=== PATIENT | male | born 1945 | race Caucasian/White ===

== ENCOUNTER 2022-04-07 19:55 | Inpatient (IN) ==
[2022-04-07] MEDS ORDERED: ASPIRIN CHEW 324 MG PO STA (20:10)
[2022-04-07] MEDS ORDERED: SODIUM CHLORIDE 0.9% 500 ML IV ONE (20:10)
[2022-04-07] MEDS ORDERED: NITROGLYCERIN SL 0.4 MG/TAB TAB SL PRN ×2 (20:12→23:31)
[2022-04-07 20:48] LABS: Troponin I High Sensitivity 7.4 pg/ml (0-20)
[2022-04-07 20:55] LABS: Albumin Globulin Ratio 1.5 (0.9-2); Albumin Level 4.2 gm/dl (3.4-5.0); BUN Creatinine Ratio 19.8 (10-20); Bilirubin,Total 0.7 mg/dl (0.2-1.0); Calcium 9.1 mg/dl (8.5-10.1); Creatinine Clr Calc Pharmacy 63.3 ml/min; Est GFR (African American) 89.9 ml/min; Est GFR (Non-African American) 77.6 ml/min; Globulin 2.8 gm/dl (2.5-4.0); Potassium 4.2 mmol/L (3.5-5.1)
[2022-04-07 21:04] LABS: Basophils # (auto) 0.04 K/uL (0-0.2); Basophils % (auto) 0.5 %; Eosinophils # (auto) 0.15 K/uL (0-0.50); Eosinophils % (auto) 1.8 %; Hemoglobin 13.9 g/dl (14.0-18.0); Immature Granulocytes # (auto) 0.06 K/uL (0.00-0.02); Immature Granulocytes % (auto) 0.7 %; Lymphocytes # (auto) 1.68 K/uL (1.2-3.4); Lymphocytes % (auto) 20.4 %; Mean Corpuscular Hemoglobin 31.4 pg (25.0-34.0); Mean Corpuscular Hgb Conc 34.8 g/dL (32.0-36.0); Mean Corpuscular Volume 90.5 fL (80.0-100.0); Mean Platelet Volume 9.4 fL (9.4-12.4); Monocytes # (auto) 0.66 K/uL (0.24-0.82); Neutrophils # (auto) 5.65 K/uL (1.4-6.5); Neutrophils % (auto) 68.6 %; Platelet Count 121 K/uL (130-400); RDW Standard Deviation 42.7 fL (36.4-46.3); Red Blood Count 4.42 M/uL (4.63-6.08); White Blood Count 8.24 K/ul (4.8-10.8)
--- NOTE | 2022-04-07 21:13 | Emergency Department Note ---
Impression & Plan Chest pain, HTN (hypertension), Acute hyperglycemia ED Provider Note NAME: GOMEZ LIVINGSTON AGE: 76 SEX: M : 1945 ARRIVES VIA: Walk-In INFORMANT: Patient ED PROVIDER(S): Cleveland Archibald DO CHIEF COMPLAINT: Chest pain HPI: Patient is a 76-year-old male with a past medical history of 2 stents followed by CABG in 2008 that presents for exertional chest pain which has been present for the past week gradually getting worse. Today he was present with walking and came in. He has been having some arm pain and some intermittent shortness of breath. No dysuria urgency or frequency. Pain is currently a 4 out of 10 described as pressure in the middle of his chest. No other exacerbating or remitting factors. The majority of his procedures performed in [place]. ROS: See above HPI for pertinent positives & negatives. A total of 10 systems reviewed and were otherwise negative. PAST MEDICAL HISTORY:See Below PAST SURGICAL HISTORY:See Below FAMILY HISTORY:See Below SOCIAL HISTORY:See Below HOME MEDICATIONS:See Below ALLERGIES:See Below VITALS:See Below PHYSICAL EXAMINATION: GENERAL: Sitting up in bed, alert, well appearing, well nourished, no distress, non-toxic EYE EXAM: normal conjunctiva. OROPHARYNX: no exudate, no erythema, lips, buccal mucosa, and tongue normal and mucous membranes are moist NECK: supple, no nuchal rigidity, no adenopathy, non-tender LUNGS: Clear to auscultation. Normal chest wall mechanics HEART: no murmurs, S1 normal and S2 normal ABDOMEN: abdomen soft, non-tender, normo-active bowel sounds, no masses, no rebound or guarding. UPPER EXTREMITIES: upper extremities are grossly normal. LOWER EXTREMITIES: No pitting edema. NEURO EXAM: Normal sensorium, cranial nerves II-XII grossly intact, normal speech, no gross weakness of arms, no gross weakness of legs. 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 IVs were established blood work was obtained. Labs show no significant leukocytosis or anemia. BMP with a glucose elevated 260. LFTs bilirubin were unremarkable. Troponin was negative. Lipase was normal. COVID was negative. Chest x-ray was unremarkable. Patient was given aspirin, nitro and had complete resolution of pain. Patient was updated at bedside is currently pain-free. Patient was discussed with Dr. Higgins for further evaluation. Considered PE but does take NOAC and has not missed any doses. Triage Nursing notes reviewed. Limited review of prior medical records performed Vital Signs: reviewed and remarkable for HTN and tachy Differential diagnosis: Cardiac ischemia, aortic dissection, pulmonary embolism, pneumothorax, pneumonia, pericarditis, myocarditis, esophageal rupture, GERD, cholecystitis, pancreatitis, musculoskeletal, as well as other pathologies. ER treatment provided: See below Diagnostics interpreted by me: ECG: Sinus tachycardia rate of 100 Normal axis No PVCs T wave version in the high lateral leads QTC 454 Cardiac Monitoring: An order was placed for continuous cardiac monitoring. The monitor shows a rate of 90 with sinus rhythm. Laboratory studies: As stated above and show below. Imaging studies: AP upright 1 view of the chest per my read shows no focal infiltrate or pneumothorax Consultation(s): Discussed with Dr. Yvon Higgins for admission in a patient with extensive cardiac history chest pain-free he was given aspirin nitro Critical Care: None Past Med/Surg History Social History Smoking Status: Former smoker Preferred Language: Lithuanian Feels Safe at Home: Yes Results & Data (ED) Vital Signs Vital Signs - 24 hr 04/07/22 19:58 04/07/22 20:40 Temperature 36.4 C L Temperature Source Temporal Artery Scan Pulse Rate 107 H 100 H Pulse Rhythm Regular Regular Pulse Strength Normal Respiratory Rate 18 18 Respiratory Effort / Characteristics Non-Labored Spontaneous Respiratory Depth Normal Respiratory Pattern Regular Blood Pressure 191/71 H Blood Pressure Mean 111 Blood Pressure Position Sitting Pulse Oximetry 93 94 Oxygen Delivery Method Room Air Room Air Sepsis Recent Fever Within 48 Hours No Sepsis New/Unexplained Change in Mental Status N/A Sepsis Action Taken by Nursing No Action Required Laboratory Data Result diagrams: 04/07/22 20:13 04/07/22 20:13 Lab Results 04/07/22 04/07/22 04/07/22 Range/Units 20:13 20:13 20:22 WBC 8.24 (4.8-10.8) K/ul RBC 4.42 L (4.63-6.08) M/uL Hgb 13.9 L (14.0-18.0) g/dl Hct 40.0 L (40.1-51.0) % MCV 90.5 (80.0-100.0) fL MCH 31.4 (25.0-34.0) pg MCHC 34.8 (32.0-36.0) g/dL RDW Std Deviation 42.7 (36.4-46.3) fL RDW Coeff of Alberto 13.0 (11.5-14.5) % Plt Count 121 L (130-400) K/uL MPV 9.4 (9.4-12.4) fL Immature Gran % (Auto) 0.7 % Neut % (Auto) 68.6 % Lymph % (Auto) 20.4 % Granite % (Auto) 8.0 % Eos % (Auto) 1.8 % Baso % (Auto) 0.5 % Neut # (Auto) 5.65 (1.4-6.5) K/uL Lymph # (Auto) 1.68 (1.2-3.4) K/uL Granite # (Auto) 0.66 (0.24-0.82) K/uL Eos # (Auto) 0.15 (0-0.50) K/uL Baso # (Auto) 0.04 (0-0.2) K/uL Immature Gran # (Auto) 0.06 H (0.00-0.02) K/uL Sodium 136 (136-145) mmol/L Potassium 4.2 (3.5-5.1) mmol/L Chloride 103 (98-107) mmol/L Carbon Dioxide 22 (21-32) mmol/L Anion Gap 11 (3-11) BUN 19 (6-23) mg/dl Creatinine 0.96 (0.6-1.4) mg/dl Est Cr Clr Drug Dosing 63.3 ml/min Est GFR ( Amer) 89.9 ml/min Est GFR (Non-Af Amer) 77.6 ml/min BUN/Creatinine Ratio 19.8 (10-20) Glucose 260 H (70-99(Fasting)) mg/dl Calcium 9.1 (8.5-10.1) mg/dl Total Bilirubin 0.7 (0.2-1.0) mg/dl AST 24 (13-39) U/L ALT 37 (7-52) U/L Alkaline Phosphatase 73 (34-104) U/L Troponin I High Sens 7.4 (0-20) pg/ml Total Protein 7.0 (6.0-8.3) gm/dl Albumin 4.2 (3.4-5.0) gm/dl Globulin 2.8 (2.5-4.0) gm/dl Albumin/Globulin Ratio 1.5 (0.9-2) Lipase 66 (11-82) U/L SARS-CoV-2, RNA, NAAT NEGATIVE (NEGATIVE) Administered Medications Nitroglycerin (Nitroglycerin Sl 0.4 Mg/Tab Tab) 0.4 mg SL PRN PRN PRN Reason: Chest Pain Stop: 05/07/22 20:11 Last Admin: 04/07/22 20:23 Dose: 0.4 mg Documented By: MURIEL Discontinued Medications Aspirin (Aspirin Chew 324 Mg) 324 mg PO NOW STA Stop: 04/07/22 20:11 Last Admin: 04/07/22 20:23 Dose: 324 mg Documented By: MURIEL Sodium Chloride (Nss) 500 mls @ 999 mls/hr IV .Q31M ONE Stop: 04/07/22 20:40 Last Admin: 04/07/22 20:25 Dose: 999 mls/hr Documented By: MURIEL Discharge Plan Visit Data Chief Complaint: Chest Pain Stated Complaint: CHEST PAIN ED Provider: Cleveland Archibald Discharge Problem: Chest pain, HTN (hypertension), Acute hyperglycemia Forms Stand Alone Forms: My [facility] Referrals Referrals: PCP,NO [Primary Care Provider] -
[2022-04-07] MEDS ORDERED: LANTUS PER UNIT CHARGE SQ STA ×2 (21:55→22:22)
[2022-04-07] MEDS ORDERED: Heparin IV Adult Wt-Based Low-Dose *NO* Bolus Protocol IV SCH (21:55)
[2022-04-07 21:56] LABS: Partial Thromboplastin Ratio 1.1; Partial Thromboplastin Time 29.1 Seconds (21.0-31.0)
[2022-04-07] MEDS ORDERED: METOPROLOL TARTRATE 25 MG TAB PO STA (21:56)
[2022-04-07] MEDS ORDERED: HEPARIN SODIUM/DEXTROSE 25,000 UNITS/500 ML BAG IV SCH (22:00)
[2022-04-07] MEDS ORDERED: LORazepam 0.5 MG TAB PO PRN (22:02)
[2022-04-07] MEDS ORDERED: PROMETHAZINE HCL 12.5 MG in SODIUM CHLORIDE 0.9% 50 ML IV PRN (22:02)
[2022-04-07] MEDS ORDERED: SODIUM CHLORIDE 0.9% 1000ML 1,000 ML IV ONE (22:02)
[2022-04-07] MEDS ORDERED: MoRPHine SULFATE 4 MG/ML 1 ML CARP\\VIAL IV PRN (22:02)
[2022-04-07] MEDS ORDERED: traMADol HCL 50 MG TABLET PO PRN (22:02)
--- NOTE | 2022-04-07 22:04 | History & Physical Report ---
Date of Service April 07, 2022 Assessment & Plan (1) Chest pain: Plan: Unstable angina versus uncontrolled blood pressure CAD status post CABG/stent PAF, patient NSR on Eliquis hyperlipidemia on statin Rx DM2 insulin requiring, BSG elevated, patient attributes to hoagie dinner, unknown baseline control hx gout, stable on allopurinol episodic thrombocytopenia, self-limiting nosebleed from right nostril yesterday as per patient. Past tobacco abuse OBS PCU Titrate home BP meds Follow troponin Cardiology consult Re: Chest pain, history of CAD N.p.o., hold Eliquis until patient seen by cardiology in a.m. in anticipation of ischemic work-up Basal insulin adjusted for n.p.o. status, ISS BG goal 1 10-1 40, check hemoglobin A1c DVT prophylaxis. IV heparin while Eliquis on hold Full code Text document was generated using [employer] voice recognition software. It may contain grammatical or spelling errors. Kindly contact undersigned for clarification of any documentation item in question. History of Present Illness Chief Complaint: Chest pain Primary Care Provider: PCP : Dr. Hernandez from [place], [place] Tent Worker : Dr. Cory Vega from [place], [place] History obtained from patient and records. Medical history significant for CAD status post stent/CABG (2008), PAF on Eliquis, hypertension, hyperlipidemia, DM2 insulin requiring, gout, skin cancer status post surgery, episodic thrombocytopenia, past tobacco abuse. Patient is a resident of [place], [place] who arrived in town the last few days for the [facility] next week. Intermittent left-sided chest pain episodes going down the left arm the last 2 days. No shortness of breath, no cough. Episode reminiscent of anginal attacks in the past. Transient chest discomfort going to the back last week. Patient compliant with home meds. Blood pressure and heart rate noted to be elevated at home today. SBP 180s, heart rate 110s which is unusual for him as per patient. Chest discomfort relieved by nitroglycerin intake. No concerns on last follow-up with cloud software engineer from [facility] 6 months ago. No recent stress test. Last cardiac catheterization 2016. Medical History as above Surgical History : CABG, shoulder surgery, back surgery, elbow surgery, ankle surgery, splenic artery clipping, melanoma surgery/construction Family History : Heart disease Personal/Social history : Past tobacco abuse, occasional EtOH intake, retired [employer] employee Allergies Allergy/AdvReac Type Severity Reaction Status Date / Time No Known Allergies Allergy Unverified 04/07/22 22:15 Home Medications Medication Instructions Recorded Confirmed Type Fish Oil 1,000 mg PO BID 04/07/22 04/07/22 History Glucosamine 1,500 mg PO BID 04/07/22 04/07/22 History Vitamin D3 5,000 mg PO DAILY 04/07/22 04/07/22 History acyclovir 800 mg tablet 800 mg PO PRN Dry Eye(S) 04/07/22 History allopurinol 100 mg tablet 100 mg PO DAILY 04/07/22 04/07/22 History apixaban 5 mg tablet (Eliquis) 5 mg PO BID 04/07/22 04/07/22 History atorvastatin 40 mg tablet 40 mg PO QPM 04/07/22 04/07/22 History canagliflozin 300 mg tablet 300 mg PO DAILY 04/07/22 04/07/22 History (Invokana) dulaglutide 4.5 mg/0.5 mL 1.5 mg subcut WK 04/07/22 04/07/22 History subcutaneous pen injector (Trulicity) glipizide 10 mg tablet 10 mg PO BID 04/07/22 04/07/22 History insulin glargine 100 unit/mL (3 40 unit subcut DAILY 04/07/22 04/07/22 History mL) subcutaneous pen (Lantus Solostar U-100 Insulin) meloxicam 7.5 mg tablet (Mobic) 7.5 mg PO PRN Back Pain 04/07/22 History metoprolol tartrate 75 mg tablet 75 mg PO BID 04/07/22 04/07/22 History nitroglycerin PRN Chest Pain 04/07/22 History pantoprazole 40 mg tablet,delayed 40 mg PO DAILY 04/07/22 04/07/22 History release ramipril 10 mg capsule 10 mg PO DAILY 04/07/22 04/07/22 History sildenafil 100 mg tablet 100 mg PO PRN ED 04/07/22 04/07/22 History Past Med/Surg History Social History Smoking Status: Former smoker Hx Alcohol Use: Yes Hx Substance Use: No Preferred Language: Romanian Communication Ability: Effective Solar Power Installer Required: No Beliefs That Will Affect Care: None Current Living Situation: Spouse Feels Safe at Home: Yes Safety Concerns: Feels Safe At This Time Review of Systems Review of Systems: As per HPI, all other systems reviewed and negative Physical Exam Physical Exam: GENERAL: Comfortable, pleasant, no respiratory distress SKIN: Normal color, warm HEENT: Healed surgical scar forehead, pink palpebral conjunctivae, no ptosis, moist buccal mucosa NECK : Supple, no tenderness CHEST : CTA, no tenderness HEART : RRR, no obvious murmurs ABDOMEN: Some distention, nontender EXTREMITIES : No LE swelling/tenderness, no other conspicuous deformities noted NEUROLOGIC : Coherent, no facial asymmetry, no other gross focality Results & Data Results & Data ([facility]) Vital Signs (Past 12 Hours) Vital Signs Temp Pulse Resp BP Pulse Ox O2 Del Method 04/07/22 21:30 93 H 20 131/73 92 04/07/22 21:00 94 H 24 131/62 92 04/07/22 20:45 98 H 23 131/59 L 94 04/07/22 20:35 102 H 21 136/59 L 95 04/07/22 20:31 102 H 22 04/07/22 20:07 103 H 27 H 176/84 H 95 04/07/22 20:40 100 H 18 94 Room Air 04/07/22 19:58 36.4 C L 107 H 18 191/71 H 93 Room Air Laboratory Results Laboratory Results WBC 8.24 K/ul (4.8-10.8) 04/07/22 20:13 RBC 4.42 M/uL (4.63-6.08) L 04/07/22 20:13 Hgb 13.9 g/dl (14.0-18.0) L 04/07/22 20:13 Hct 40.0 % (40.1-51.0) L 04/07/22 20:13 MCV 90.5 fL (80.0-100.0) 04/07/22 20:13 MCH 31.4 pg (25.0-34.0) 04/07/22 20:13 MCHC 34.8 g/dL (32.0-36.0) 04/07/22 20:13 RDW Std Deviation 42.7 fL (36.4-46.3) 04/07/22 20:13 RDW Coeff of Alberto 13.0 % (11.5-14.5) 04/07/22 20:13 Plt Count 121 K/uL (130-400) L 04/07/22 20:13 MPV 9.4 fL (9.4-12.4) 04/07/22 20:13 Immature Gran % (Auto) 0.7 % 04/07/22 20:13 Neut % (Auto) 68.6 % 04/07/22 20:13 Lymph % (Auto) 20.4 % 04/07/22 20:13 Winn % (Auto) 8.0 % 04/07/22 20:13 Eos % (Auto) 1.8 % 04/07/22 20:13 Baso % (Auto) 0.5 % 04/07/22 20:13 Neut # (Auto) 5.65 K/uL (1.4-6.5) 04/07/22 20:13 Lymph # (Auto) 1.68 K/uL (1.2-3.4) 04/07/22 20:13 Winn # (Auto) 0.66 K/uL (0.24-0.82) 04/07/22 20:13 Eos # (Auto) 0.15 K/uL (0-0.50) 04/07/22 20:13 Baso # (Auto) 0.04 K/uL (0-0.2) 04/07/22 20:13 Immature Gran # (Auto) 0.06 K/uL (0.00-0.02) H 04/07/22 20:13 APTT 29.1 Seconds (21.0-31.0) 04/07/22 20:13 PTT Ratio 1.1 04/07/22 20:13 Sodium 136 mmol/L (136-145) 04/07/22 20:13 Potassium 4.2 mmol/L (3.5-5.1) 04/07/22 20:13 Chloride 103 mmol/L (98-107) 04/07/22 20:13 Carbon Dioxide 22 mmol/L (21-32) 04/07/22 20:13 Anion Gap 11 (3-11) 04/07/22 20:13 BUN 19 mg/dl (6-23) 04/07/22 20:13 Creatinine 0.96 mg/dl (0.6-1.4) 04/07/22 20:13 Est Cr Clr Drug Dosing 63.3 ml/min 04/07/22 20:13 Est GFR ( Amer) 89.9 ml/min 04/07/22 20:13 Est GFR (Non-Af Amer) 77.6 ml/min 04/07/22 20:13 BUN/Creatinine Ratio 19.8 (10-20) 04/07/22 20:13 Glucose 260 mg/dl (70-99(Fasting)) H 04/07/22 20:13 Calcium 9.1 mg/dl (8.5-10.1) 04/07/22 20:13 Total Bilirubin 0.7 mg/dl (0.2-1.0) 04/07/22 20:13 AST 24 U/L (13-39) 04/07/22 20:13 ALT 37 U/L (7-52) 04/07/22 20:13 Alkaline Phosphatase 73 U/L (34-104) 04/07/22 20:13 Troponin I High Sens 7.4 pg/ml (0-20) 04/07/22 20:13 Total Protein 7.0 gm/dl (6.0-8.3) 04/07/22 20:13 Albumin 4.2 gm/dl (3.4-5.0) 04/07/22 20:13 Globulin 2.8 gm/dl (2.5-4.0) 04/07/22 20:13 Albumin/Globulin Ratio 1.5 (0.9-2) 04/07/22 20:13 Lipase 66 U/L (11-82) 04/07/22 20:13 SARS-CoV-2, RNA, NAAT NEGATIVE (NEGATIVE) 04/07/22 20:22 Diagnostic Findings Chest x-ray as per my interpretation atelectasis EKG as per my interpretation : Rate 100, NSR, normal axis, T wave abnormalities, lateral leads Code Status & VTE Plan VTE Prophylaxis Plan VTE Prophylaxis will be ordered: Yes
[2022-04-07] MEDS ORDERED: GLUCOSE 40% GEL 15 GM TUBE PO PRN (23:31)
[2022-04-07] MEDS ORDERED: GLUCOSE 10 TAB/TUBE PO PRN (23:31)
[2022-04-07] MEDS ORDERED: ACETAMINOPHEN 325 MG TAB PO PRN (23:31)
[2022-04-07] MEDS ORDERED: CARBOHYDRATES FOR HYPOGLYCEMIA PO PRN (23:31)
[2022-04-07] MEDS ORDERED: GLUCAGON FOR INJ 1 MG VIAL SQ PRN (23:31)
[2022-04-07] MEDS ORDERED: DEXTROSE 50% 50 ML SYRINGE IV PRN (23:31)
[2022-04-08] MEDS: INSULIN ASPART PER UNIT SC SCH ×5 (00:27→21:01)
[2022-04-08] MEDS: ATORVASTATIN 40 MG TAB PO SCH ×2 (02:36→22:07)
[2022-04-08 05:42] LABS: Partial Thromboplastin Ratio 1.2; Partial Thromboplastin Time 33.6 Seconds (21.0-31.0)
[2022-04-08 05:52] LABS: BUN Creatinine Ratio 19.3 (10-20); Calcium 8.7 mg/dl (8.5-10.1); Chol HDL Ratio 2.6 (0-5); Creatinine Clr Calc Pharmacy 69.1 ml/min; Est GFR (African American) 98.1 ml/min; Est GFR (Non-African American) 84.6 ml/min; Potassium 4.2 mmol/L (3.5-5.1)
[2022-04-08 05:53] LABS: Troponin I High Sensitivity 8.1 pg/ml (0-20)
[2022-04-08 06:05] LABS: Basophils # (auto) 0.04 K/uL (0-0.2); Basophils % (auto) 0.7 %; Eosinophils # (auto) 0.16 K/uL (0-0.50); Eosinophils % (auto) 2.7 %; Immature Granulocytes # (auto) 0.05 K/uL (0.00-0.02); Immature Granulocytes % (auto) 0.8 %; Lymphocytes # (auto) 1.21 K/uL (1.2-3.4); Lymphocytes % (auto) 20.5 %; Monocytes # (auto) 0.46 K/uL (0.24-0.82); Monocytes % (auto) 7.8 %; Neutrophils # (auto) 3.99 K/uL (1.4-6.5); Neutrophils % (auto) 67.5 %; Platelet Estimate Decreased (Normal); Polychromasia 1+
[2022-04-08 06:06] LABS: Hemoglobin 12.7 g/dl (14.0-18.0); Mean Corpuscular Hemoglobin 31.2 pg (25.0-34.0); Mean Corpuscular Hgb Conc 34.3 g/dL (32.0-36.0); Mean Corpuscular Volume 90.9 fL (80.0-100.0); Platelet Count 115 K/uL (130-400); RDW Coefficient of Variation 13.1 % (11.5-14.5); Red Blood Count 4.07 M/uL (4.63-6.08); White Blood Count 5.91 K/ul (4.8-10.8)
[2022-04-08 06:53] LABS: Estimated Average Glucose 148 mg/dl; Hemoglobin A1C 6.8 % (4.5-5.6)
[2022-04-08] MEDS ORDERED: HEPARIN SOD (PORCINE) 1000 UNIT/ML ONE (06:54)
[2022-04-08] MEDS ORDERED: HEPARIN SOD (PORCINE) 1000 UNIT/ML IV ONE (07:02)
[2022-04-08] MEDS ORDERED: LANTUS PER UNIT CHARGE SQ SCH ×2 (09:00)
--- NOTE | 2022-04-08 09:08 | Cardiology Consultation ---
Date of Consultation April 08, 2022 Assessment & Plan (1) CAD (coronary artery disease): (2) Chest pain: (3) HTN (hypertension): Plan Patient admitted for recurrent episodes of chest pain, concerning for unstable angina over the last week. Increasing in frequency, duration, and intensity. He has history of remote PCI and CABG to unknown vessels. He resides in [place] and follows with Security Analyst Dr. Vega at [facility] in [place], [place]. (Phone - [phone]). Per patient, symptoms are similar to past diagnosis of CAD at time of intervention in 1999's and CABG in 2008. He apparently had repeat cath in 2017 which demonstrated patent grafts and small vessel disease which was not ammenable to revascularization. Records have been requested. He reports stress testing in the past has been non diagnostic or unrevealing. HS troponin has been unremarkable x3. He does have high lateral T wave abnormality in I, AVL. No prior EKG for comparison. He is currently chest pain free. Eliquis is on hold. Continue IV heparin for now. Continue ASA, Atorvastatin, enalapril, metoprolol. Add nitro paste given uncontrolled hypertension. Await records. Keep NPO. Echo ordered. Case discussed with Dr. Rodas. Supervising Physician Co-Signing Physician Notes Patient seen and examined at the bedside. Complains of chest discomfort rating to his left arm dating back more than 1 week. Forgot to bring his sublingual nitroglycerin to [place]. Discomfort relieved with rest although he experienced 1 episode of chest discomfort last evening associated with rapid heart rate. Carries a history of paroxysmal atrial fibrillation chronically anticoagulated with Eliquis. Pain-free since admission. Cardiac enzymes negative. ECG with high lateral T wave inversion. No comparison study available. Reports history of prior stenting to the right coronary artery as well as coronary artery bypass grafting x2 in 2008. Reports a cardiac catheterization performed in 2017 where "everything was okay". No intervention performed at that time. PE: VSS. Gen: NAD, AAO x3. Heart: Regular rhythm, normal S1-S2. No murmur. Lungs: Clear bilateral, no rales, rhonchi, wheeze. Extremities: No edema. Palpable radial and femoral pulses. Neurologic: No focal motor deficit. A/P: Agree with above PA-C history, physical exam, assessment and plan. 76-year-old male presenting with unstable angina. Recommend repeat resting 2D transthoracic echocardiogram. Further ischemic evaluation is warranted. Risk, benefits, and alternatives to cardiac catheterization with coronary angiography and bypass graft angiography discussed. Patient agreeable to proceed. We will obtain records from outpatient landing man regarding details of his coronary anatomy prior to procedure. He will remain n.p.o. at this time. Intravenous heparin infusing, however, will place on hold prior to procedure. History of Present Illness Reason for Consultation: Chest pain; history of CAD/CABG Requesting Physician: Dr. Davis Attending Physician: Dr. Rodas History of Present Illness Patient is a complex 76 year old male who presented to [facility] ER with chest pain. He resides in [place] where he follows with landing man for 20+ years. He recalls initial 2 stents in approximately 1999. In 2008 he had CABG and also reports the stents were migrating to his aorta and removed? Most recent cath in 2017 with patent grafts per patient. He also recalls being told he had several small vessels that were not amenable to revascularization. He also reports history of PAF, for which he is on chronic Eliquis and metoprolol. Last week he travelled from [place] to [place], [place] for several days, then [place] to visit family. He recalls having intermittent chest pain radiating across his chest and radiating down his left arm on multiple occasions over the last week. Symptoms occur at rest, awakening him from sleep or with exertional activities. Unfortunately he forgot his SL nitro at home and did not have any to take. Symptoms last 10-15 minutes at at time. He notes diaphoresis and hot/flushing sensation as well. No worsening SOB. He recalls having one episode of chest pain several months ago and this was discussed with his primary landing man in [place]. He was to notify their office if symptoms worsened or became more frequent. He feel his symptoms are similar to when he had CABG in 2008, but not as severe. He reports compliance with all medications. Yesterday he was helping to load a truck with boxes/furniture and developed worsening symptoms that felt worse and lasted longer period of time. He then came to the ER. His last episode of chest pain was last evening in the ER. Currently chest pain free. His BP has been elevated since admission. EKG on admission demonstrating NSR with high lateral T wave abnormality in I, AVL. HS troponin has been unremarkable x3. Records have been requested. Allergies Allergy/AdvReac Type Severity Reaction Status Date / Time No Known Allergies Allergy Unverified 04/07/22 22:15 Home Medications Medication Instructions Recorded Confirmed Type Fish Oil 1,000 mg PO BID 04/07/22 04/07/22 History Glucosamine 1,500 mg PO BID 04/07/22 04/07/22 History Vitamin D3 5,000 mg PO DAILY 04/07/22 04/07/22 History acyclovir 800 mg tablet 800 mg PO PRN Dry Eye(S) 04/07/22 History allopurinol 100 mg tablet 100 mg PO DAILY 04/07/22 04/07/22 History apixaban 5 mg tablet (Eliquis) 5 mg PO BID 04/07/22 04/07/22 History atorvastatin 40 mg tablet 40 mg PO QPM 04/07/22 04/07/22 History canagliflozin 300 mg tablet 300 mg PO DAILY 04/07/22 04/07/22 History (Invokana) dulaglutide 4.5 mg/0.5 mL 1.5 mg subcut WK 04/07/22 04/07/22 History subcutaneous pen injector (Trulicity) glipizide 10 mg tablet 10 mg PO BID 04/07/22 04/07/22 History insulin glargine 100 unit/mL (3 40 unit subcut DAILY 04/07/22 04/07/22 History mL) subcutaneous pen (Lantus Solostar U-100 Insulin) meloxicam 7.5 mg tablet (Mobic) 7.5 mg PO PRN Back Pain 04/07/22 History metoprolol tartrate 75 mg tablet 75 mg PO BID 04/07/22 04/07/22 History nitroglycerin PRN Chest Pain 04/07/22 History pantoprazole 40 mg tablet,delayed 40 mg PO DAILY 04/07/22 04/07/22 History release ramipril 10 mg capsule 10 mg PO DAILY 04/07/22 04/07/22 History sildenafil 100 mg tablet 100 mg PO PRN ED 04/07/22 04/07/22 History Patient History Social History Smoking Status: Former smoker Hx Alcohol Use: Yes Hx Substance Use: No Preferred Language: Serbian Communication Ability: Effective Bellperson Required: No Beliefs That Will Affect Care: None Current Living Situation: Spouse Feels Safe at Home: Yes Safety Concerns: Feels Safe At This Time Review of Systems Review of Systems: All systems reviewed & are unremarkable except as noted in HPI & below Physical Exam Constitutional: WD/WN, vitals as above Neck: trachea midline, no thyromegaly Respiratory: normal respiratory effort, lungs clear to auscultation Cardiovascular: Rate/Rhythm: regular rate and regular rhythm Heart Sounds: normal S1 and normal S2; no murmur Vessels: no JVD Extremities: no edema Gastrointestinal (Abdomen): normal bowel sounds, soft, nontender, no hepatosplenomegaly Skin: no rashes, warm and dry Neurologic: PERRL, EOMI, accommodation nl, no face palsy, no dysarthria Psychiatric: A+Ox3, euthymic affect Results & Data ([facility]) Vital Signs (Past 12 Hours) Vital Signs Pulse Pulse Resp BP BP Pulse Ox O2 Del Method 04/08/22 08:00 88 21 163/91 H 94 Room Air 04/08/22 04:45 81 17 97 Nasal Cannula 04/08/22 04:30 89 24 90 Nasal Cannula 04/08/22 04:15 80 17 97 Nasal Cannula 04/08/22 04:53 97 Nasal Cannula 04/08/22 04:00 85 21 99 04/08/22 04:00 156/73 H 04/08/22 03:00 84 19 97 04/08/22 03:00 145/69 H 04/08/22 02:00 88 16 98 04/08/22 02:00 144/71 H 04/08/22 01:00 88 20 143/77 H 97 04/08/22 01:00 143/77 H 04/08/22 00:00 87 20 149/76 H 93 04/07/22 23:45 88 23 150/76 H 94 04/07/22 23:30 88 19 145/78 H 97 04/07/22 23:15 87 19 135/72 96 04/07/22 23:00 83 20 139/65 93 04/07/22 22:45 85 22 147/70 H 94 04/07/22 22:38 86 14 150/75 H 96 04/07/22 22:00 87 25 H 145/80 H 94 04/07/22 21:45 86 24 142/87 H 96 04/07/22 21:30 93 H 20 131/73 92 O2 Flow Rate 04/08/22 08:00 04/08/22 04:45 2 04/08/22 04:30 2 04/08/22 04:15 2 04/08/22 04:53 2 04/08/22 04:00 04/08/22 04:00 04/08/22 03:00 04/08/22 03:00 04/08/22 02:00 04/08/22 02:00 04/08/22 01:00 04/08/22 01:00 04/08/22 00:00 04/07/22 23:45 04/07/22 23:30 04/07/22 23:15 04/07/22 23:00 04/07/22 22:45 04/07/22 22:38 04/07/22 22:00 04/07/22 21:45 04/07/22 21:30 Laboratory Results Cardiac Enzymes 04/07/22 04/07/22 04/08/22 Range/Units 20:13 22:16 05:09 AST 24 (13-39) U/L Troponin I High Sens 7.4 7.4 8.1 (0-20) pg/ml Coagulation 04/07/22 04/08/22 Range/Units 20:13 05:09 APTT 29.1 33.6 H (21.0-31.0) Seconds Lipids 04/08/22 Range/Units 05:09 Triglycerides 124 (0-150) mg/dl Cholesterol 132 (0-200) mg/dl HDL Cholesterol 50 mg/dl Cholesterol/HDL Ratio 2.6 (0-5) CBC 04/07/22 04/08/22 Range/Units 20:13 05:09 WBC 8.24 5.91 (4.8-10.8) K/ul RBC 4.42 L 4.07 L (4.63-6.08) M/uL Hgb 13.9 L 12.7 L (14.0-18.0) g/dl Hct 40.0 L 37.0 L (40.1-51.0) % Plt Count 121 L 115 L (130-400) K/uL Neut # (Auto) 5.65 3.99 (1.4-6.5) K/uL Lymph # (Auto) 1.68 1.21 (1.2-3.4) K/uL [place] # (Auto) 0.66 0.46 (0.24-0.82) K/uL Eos # (Auto) 0.15 0.16 (0-0.50) K/uL Baso # (Auto) 0.04 0.04 (0-0.2) K/uL Comprehensive Metabolic Panel 04/07/22 04/08/22 Range/Units 20:13 05:09 Sodium 136 138 (136-145) mmol/L Potassium 4.2 4.2 (3.5-5.1) mmol/L Chloride 103 105 (98-107) mmol/L Carbon Dioxide 22 28 (21-32) mmol/L BUN 19 17 (6-23) mg/dl Creatinine 0.96 0.88 (0.6-1.4) mg/dl Glucose 260 H 94 (70-99(Fasting)) mg/dl Calcium 9.1 8.7 (8.5-10.1) mg/dl AST 24 (13-39) U/L ALT 37 (7-52) U/L Alkaline Phosphatase 73 (34-104) U/L Total Protein 7.0 (6.0-8.3) gm/dl Albumin 4.2 (3.4-5.0) gm/dl Intake and Output 04/07/22 04/08/22 04/08/22 22:59 06:59 14:59 Intake Total 500 / 623.733 123.733 / 623.733 Output Total 250 / 250 Balance 500 / 373.733 -126.267 / 373.733 Intake: IV 500 / 623.733 123.733 / 623.733 Heparin Sodium/Dextrose 25,000 123.733 / 123.733 units In 500 ml @ 800 UNITS/HR 16 mls/hr IV .Q24H [facility] Rx#: [id number] Sodium Chloride 0.9% 500 ml @ 500 / 500 999 mls/hr IV .Q31M [facility] Rx#: [id number] Output: Urine 250 / 250 Other: Weight 76.9 kg 77 kg Weight Measurement Method Chair Scale Built in [facility] Diagnostic Findings EKG reviewed from admission- Sinus tachycardia at 100 bpm lateral T wave inversion in I, AVL No prior for comparison Laboratory Results WBC 5.91 K/ul (4.8-10.8) 04/08/22 05:09 RBC 4.07 M/uL (4.63-6.08) L 04/08/22 05:09 Hgb 12.7 g/dl (14.0-18.0) L 04/08/22 05:09 Hct 37.0 % (40.1-51.0) L 04/08/22 05:09 MCV 90.9 fL (80.0-100.0) 04/08/22 05:09 MCH 31.2 pg (25.0-34.0) 04/08/22 05:09 MCHC 34.3 g/dL (32.0-36.0) 04/08/22 05:09 RDW Std Deviation 43.0 fL (36.4-46.3) 04/08/22 05:09 RDW Coeff of Alberto 13.1 % (11.5-14.5) 04/08/22 05:09 Plt Count 115 K/uL (130-400) L 04/08/22 05:09 MPV 9.0 fL (9.4-12.4) L 04/08/22 05:09 Immature Gran % (Auto) 0.8 % 04/08/22 05:09 Neut % (Auto) 67.5 % 04/08/22 05:09 Lymph % (Auto) 20.5 % 04/08/22 05:09 [place] % (Auto) 7.8 % 04/08/22 05:09 Eos % (Auto) 2.7 % 04/08/22 05:09 Baso % (Auto) 0.7 % 04/08/22 05:09 Neut # (Auto) 3.99 K/uL (1.4-6.5) 04/08/22 05:09 Lymph # (Auto) 1.21 K/uL (1.2-3.4) 04/08/22 05:09 [place] # (Auto) 0.46 K/uL (0.24-0.82) 04/08/22 05:09 Eos # (Auto) 0.16 K/uL (0-0.50) 04/08/22 05:09 Baso # (Auto) 0.04 K/uL (0-0.2) 04/08/22 05:09 Immature Gran # (Auto) 0.05 K/uL (0.00-0.02) H 04/08/22 05:09 Platelet Estimate Decreased (Normal) L 04/08/22 05:09 Polychromasia 1+ 04/08/22 05:09 APTT 33.6 Seconds (21.0-31.0) H 04/08/22 05:09 PTT Ratio 1.2 04/08/22 05:09 Sodium 138 mmol/L (136-145) 04/08/22 05:09 Potassium 4.2 mmol/L (3.5-5.1) 04/08/22 05:09 Chloride 105 mmol/L (98-107) 04/08/22 05:09 Carbon Dioxide 28 mmol/L (21-32) 04/08/22 05:09 Anion Gap 5 (3-11) 04/08/22 05:09 BUN 17 mg/dl (6-23) 04/08/22 05:09 Creatinine 0.88 mg/dl (0.6-1.4) 04/08/22 05:09 Est Cr Clr Drug Dosing 69.1 ml/min 04/08/22 05:09 Est GFR ( Amer) 98.1 ml/min 04/08/22 05:09 Est GFR (Non-Af Amer) 84.6 ml/min 04/08/22 05:09 BUN/Creatinine Ratio 19.3 (10-20) 04/08/22 05:09 Glucose 94 mg/dl (70-99(Fasting)) 04/08/22 05:09 POC Glucose 106 mg/dl (70-99) H 04/08/22 09:13 Estimat Average Glucose 148 mg/dl 04/07/22 20:13 Hemoglobin A1c 6.8 % (4.5-5.6) H 04/07/22 20:13 Calcium 8.7 mg/dl (8.5-10.1) 04/08/22 05:09 Total Bilirubin 0.7 mg/dl (0.2-1.0) 04/07/22 20:13 AST 24 U/L (13-39) 04/07/22 20:13 ALT 37 U/L (7-52) 04/07/22 20:13 Alkaline Phosphatase 73 U/L (34-104) 04/07/22 20:13 Troponin I High Sens 8.1 pg/ml (0-20) 04/08/22 05:09 Total Protein 7.0 gm/dl (6.0-8.3) 04/07/22 20:13 Albumin 4.2 gm/dl (3.4-5.0) 04/07/22 20:13 Globulin 2.8 gm/dl (2.5-4.0) 04/07/22 20:13 Albumin/Globulin Ratio 1.5 (0.9-2) 04/07/22 20:13 Triglycerides 124 mg/dl (0-150) 04/08/22 05:09 Cholesterol 132 mg/dl (0-200) 04/08/22 05:09 LDL Cholesterol, Calc 57 mg/dl 04/08/22 05:09 VLDL Cholesterol, Calc 25 mg/dl (0-30) 04/08/22 05:09 HDL Cholesterol 50 mg/dl 04/08/22 05:09 Cholesterol/HDL Ratio 2.6 (0-5) 04/08/22 05:09 Lipase 66 U/L (11-82) 04/07/22 20:13 SARS-CoV-2, RNA, NAAT NEGATIVE (NEGATIVE) 04/07/22 20:22 Impressions Chest X-Ray 04/07/22 20:10 SINGLE VIEW CHEST CLINICAL HISTORY: Atypical chest pain. FINDINGS: An AP, portable, upright chest radiograph is obtained. No prior studies are available for comparison at the time of dictation. The examination is degraded by portable technique and apical lordotic positioning. The patient is status post midline sternotomy. The heart is enlarged noting atherosclerotic calcification of the thoracic aorta. The pulmonary vasculature is noncongested. The lungs and pleural spaces are clear. No pneumothorax is seen. The skeletal structures are osteopenic. The bony thorax is grossly intact. Embolization coils are noted in the left upper quadrant. IMPRESSION: Cardiomegaly with no acute cardiopulmonary abnormality identified. ACT 112: Negative or not required by law. Electronically signed by: Nando Ruiz M.D. 04/08/2022 9:15 AM Medications Administered Current Inpatient Medications Acetaminophen (Acetaminophen 325 Mg Tab) 650 mg PO Q4H PRN PRN Reason: Pain or Fever Stop: 05/07/22 23:30 Allopurinol (Allopurinol 100 Mg Tab) 100 mg PO HS CAROLYN Stop: 05/08/22 20:59 Atorvastatin Calcium (Atorvastatin 40 Mg Tab) 40 mg PO QPM CAROLYN Stop: 05/08/22 01:19 Last Admin: 04/08/22 02:36 Dose: 40 mg Dextrose (Dextrose 50% 50 Ml Syringe) 25 - 50 ml IV UD PRN; Protocol PRN Reason: Hypoglycemia Protocol Stop: 05/07/22 23:30 Enalapril Maleate (Enalapril Maleate 10 Mg Tab) 40 mg PO DAILY CAROLYN Stop: 05/08/22 08:59 Last Admin: 04/08/22 09:15 Dose: 40 mg Glucagon (Glucagon For Inj 1 Mg Vial) 1 mg SQ UD PRN; Protocol PRN Reason: Hypoglycemia Protocol Stop: 05/07/22 23:30 Glucose (Glucose 40% Gel 15 Gm Tube) 15 - 30 gm PO UD PRN; Protocol PRN Reason: Hypoglycemia Protocol Stop: 05/07/22 23:30 Glucose (Glucose 10 Tab/Tube) 4 - 8 tab PO UD PRN; Protocol PRN Reason: Hypoglycemia Treatment Stop: 05/07/22 23:30 Heparin Sodium/Dextrose (Heparin Sodium/Dextrose) 25,000 units in 500 mls @ 19 mls/hr IV .Q24H CAROLYN; Protocol Stop: 05/07/22 21:59 Last Titration: 04/08/22 06:57 Dose: 950 units/hr, 19 mls/hr Promethazine HCl 12.5 mg/ (Sodium Chloride) 50.5 mls @ 202 mls/hr IV Q6H PRN PRN Reason: Nausea And Vomiting Stop: 05/07/22 22:01 Sodium Chloride (Nss 1000ml) 1,000 mls @ 50 mls/hr IV .Q20H [facility] Stop: 04/08/22 18:01 Last Admin: 04/07/22 23:13 Dose: 50 mls/hr Insulin Aspart (Insulin Aspart Per Unit) 0 units SC ACHS [facility] Stop: 05/07/22 23:30 Last Admin: 04/08/22 09:21 Dose: Not Given Insulin Glargine (Lantus Per Unit Charge) 10 units SQ BID [facility] Stop: 05/08/22 20:59 Lorazepam (Lorazepam 0.5 Mg Tab) 0.5 mg PO TID PRN PRN Reason: Anxiety Stop: 05/07/22 22:01 Metoprolol Tartrate (Metoprolol Tartrate 25 Mg Tab) 75 mg PO BID [facility] Stop: 05/08/22 08:59 Last Admin: 04/08/22 09:15 Dose: 75 mg Miscellaneous (Carbohydrates For Hypoglycemia ) 15 - 30 gm PO UD PRN PRN Reason: Hypoglycemia Protocol Stop: 05/07/22 23:30 Morphine Sulfate (Morphine Sulfate 4 Mg/Ml 1 Ml Carp\\Vial) 4 mg IV Q4H PRN PRN Reason: Pain Stop: 04/21/22 22:01 Nitroglycerin (Nitroglycerin Sl 0.4 Mg/Tab Tab) 0.4 mg SL Q5M PRN PRN Reason: Chest Pain Stop: 05/07/22 23:30 Nitroglycerin (Nitroglycerin 2% Ointment 30gm Tube) 0.5 inch EXT Q6H CAROLYN Stop: 05/08/22 09:59 Pantoprazole Sodium (Pantoprazole 40 Mg Tab) 40 mg PO DAILY CAROLYN Stop: 05/08/22 08:59 Last Admin: 04/08/22 09:15 Dose: 40 mg Tramadol HCl (Tramadol Hcl 50 Mg Tablet) 25 - 50 mg PO Q4H PRN PRN Reason: Pain Stop: 05/07/22 22:01
[2022-04-08] MEDS: PANTOprazole 40 MG TAB PO SCH (09:15)
[2022-04-08] MEDS: ENALAPRIL MALEATE 10 MG TAB PO SCH (09:15)
[2022-04-08] MEDS: METOPROLOL TARTRATE 25 MG TAB PO SCH ×2 (09:15→22:07)
--- NOTE | 2022-04-08 09:16 | XRay Report ---
SINGLE VIEW CHEST CLINICAL HISTORY: Atypical chest pain. FINDINGS: An AP, portable, upright chest radiograph is obtained. No prior studies are available for c omparison at the time of dictation. The examination is degraded by portable technique and apical lord otic positioning. The patient is status post midline sternotomy. The heart is enlarged noting atheros clerotic calcification of the thoracic aorta. The pulmonary vasculature is noncongested. The lungs an d pleural spaces are clear. No pneumothorax is seen. The skeletal structures are osteopenic. The bony thorax is grossly intact. Embolization coils are noted in the left upper quadrant. IMPRESSION: Cardiomegaly with no acute cardiopulmonary abnormality identified. ACT 112: Negative or not required by law. Electronically signed by: Nando Ruiz M.D. 04/08/2022 9:15 AM
--- NOTE | 2022-04-08 09:23 | Electrocardiogram Report ---
Test Reason : Blood Pressure : / mmHG Vent. Rate : 100 BPM Atrial Rate : 100 BPM P-R Int : 170 ms QRS Dur : 082 ms QT Int : 352 ms P-R-T Axes : 055 029 099 degrees QTc Int : 454 ms Normal sinus rhythm T wave abnormality, consider lateral ischemia Abnormal ECG No previous ECGs available Confirmed by Saul Price ([id number]) on 04/08/2022 9:23:10 AM Referred By: REFERRED SELF Confirmed By:Saul Price
[2022-04-08] MEDS: NITROGLYCERIN 2% OINTMENT 30GM TUBE EXT SCH ×3 (12:09→22:03)
--- NOTE | 2022-04-08 14:08 | Electrocardiogram Report ---
Test Reason : Blood Pressure : / mmHG Vent. Rate : 082 BPM Atrial Rate : 082 BPM P-R Int : 182 ms QRS Dur : 074 ms QT Int : 366 ms P-R-T Axes : 045 032 092 degrees QTc Int : 427 ms Normal sinus rhythm Nonspecific T wave abnormality Abnormal ECG When compared with ECG of 07-APR-2022 20:03, No significant change was found Confirmed by Saul Price ([id number]) on 04/08/2022 2:07:43 PM Referred By: REFERRED SELF Confirmed By:Saul Price
--- NOTE | 2022-04-08 14:14 | Pre Anesthesia Assessment ---
Date of Service April 08, 2022 Pre Sedation Assessment Vital Signs Temp Pulse Pulse Resp BP BP Pulse Ox 04/09/22 11:12 36.6 C 83 18 104/68 94 04/09/22 09:00 84 04/09/22 07:55 36.8 C 82 18 145/71 H 96 04/09/22 04:28 36.9 C 84 16 144/68 H 94 04/09/22 01:24 88 04/08/22 22:30 36.8 C 87 16 123/68 92 04/08/22 19:15 36.7 C 86 16 124/66 96 04/08/22 16:41 36.9 C 79 19 157/79 H 95 04/08/22 16:31 36.9 C 80 20 125/75 94 04/08/22 14:30 36.8 C 82 21 170/80 H 92 04/08/22 14:15 36.8 C 82 18 159/86 H 92 04/08/22 12:00 85 04/08/22 12:12 36.8 C 82 19 172/82 H 95 O2 Del Method O2 Flow Rate 04/09/22 11:12 Room Air 04/09/22 09:00 04/09/22 07:55 Room Air 04/09/22 04:28 04/09/22 01:24 04/08/22 22:30 Room Air 04/08/22 19:15 Room Air 04/08/22 16:41 Room Air 04/08/22 16:31 Room Air 04/08/22 14:30 Nasal Cannula 4 04/08/22 14:15 Nasal Cannula 4 04/08/22 12:00 04/08/22 12:12 Room Air Cardiovascular + regular rate and + regular rhythm + S1 normal and + S2 normal + femoral pulses present and + radial pulses present; no JVD and no carotid bruit no edema Respiratory + clear to auscultation bilaterally Pre-Sedation Airway Assessment Smoking Status: Former smoker Mallampati Class: II ASA: ASA3 NPO Status Date of Last Intake of Fluids: 04/08/22 Date of Last Intake of Solid Food: 04/07/22 Procedure Planning Contraindications for Sedation: none Current Medications Reviewed: Yes Notes The planned sedation has been discussed with the patient. Informed Consent was obtained. I have identified the patient, determined the appropriateness of sedation and have assessed the patient immediately prior to the procedure. All medicine(s) and interventions are by my order.
[2022-04-08] MEDS ORDERED: ASPIRIN 81 MG CHEW ONE (15:03)
[2022-04-08] MEDS ORDERED: MIDAZOLAM HCL 1 MG/ML 2ML VIAL ONE (15:13)
[2022-04-08] MEDS ORDERED: HEPARIN (PORCINE) 1000 UNIT/ML 10 ML (CATH LAB USE ONLY) ONE (15:13)
[2022-04-08] MEDS ORDERED: fentaNYL citrate 100 MCG/2 ML VIAL ONE (15:13)
[2022-04-08] MEDS ORDERED: niCARdipine HCL INJ 2.5 MG/ML 10 ML AMP ONE (15:13)
[2022-04-08] MEDS ORDERED: NITROGLYCERIN/D5W 100MCG/ML 20ML SYR ONE (15:14)
--- NOTE | 2022-04-08 16:11 | Hospitalist Progress Note ---
Date of Service April 08, 2022 Assessment & Plan (1) Chest pain: Plan 76-year-old male with PMH of CAD status post stent/CABG [2009], PAF on Eliquis, HTN, HLD, DM 2 insulin requiring, gout, skin cancer status post surgery, episodic thrombocytopenia, past tobacco abuse presented to our ED 04/07 with complaint of intermittent chest pain episodes going down the left arm worsening since last few days but present since last 1 and half weeks. He relates it to the angina attacks in the past. Chest discomfort was relieved by nitroglycerin. He is being managed for the following: Chest pain rule out ACS Likely unstable angina History of CAD status post CABG/stent Patient presents with chest pain [see above]. Admitting troponin x3 were negative. Admitting EKG with T wave abnormality in lateral leads. Follow-up EKG next a.m. with similar T wave abnormality. Continue with PCU telemetry monitoring. 04/08 echo with EF 60 to 65% with grade 1 diastolic dysfunction. Discussed with cardiology, for cardiac cath today Appreciate cardiology recommendations. H/O PAF: NSR on EKG, patient on Eliquis at home, currently on heparin drip. HTN: Blood pressure on the high side, patient on enalapril, home metoprolol, Nitropaste every 6 hours. Other chronic medical conditions: HLD, DM2 insulin requiring, gout, episodic thrombocytopenia, past tobacco abuse ---->> continue with home meds as able. Disposition: With cardiology clearance, likely to home. DVT prophylaxis: On heparin drip, currently on hold for cardiac cath. Full code Admission and Anticipated Discharge Date Admission Date: April 07, 2022 Subjective Patient seen and examined at bedside as a follow-up for chest pain rule out ACS. Patient was lying in bed, on room air, NAD, reports an event of chest pain for around 2 minutes overnight, no further chest pain, denies headache/dizziness/palpitations/belly pain/acute changes in bowel or bladder habits/other review of symptoms. Patient is n.p.o. for cardiac cath today. Patient reports moving bowels okay. Patient denies any acid brash or retrosternal burning sensation. Physical Exam Physical Exam: GENERAL: Alert and oriented x3. NAD, on RA. HEENT: No pallor, no icterus. Pupils equal, round and reactive to light. Oral mucosa moist. NECK: No JVD, no neck masses. HEART: S1 and S2 heard. Regular rate and rhythm. Systolic Murmur at aortic area > pulmonic area, no gallop. RESPIRATORY SYSTEM: Normal AP diameter. No accessory muscle use. No wheezing, no crackles. ABDOMEN: Soft, bowel sounds present, nontender, no distention. CENTRAL NERVOUS SYSTEM: No facial droop. Speech is clear. Obeys simple commands. Moves extremities. EXTREMITIES: No edema, no erythema seen. Results & Data Results & Data ([facility]) Vital Signs (Past 12 Hours) Vital Signs Temp Pulse Pulse Resp BP Pulse Ox O2 Del Method 04/08/22 14:30 36.8 C 82 21 170/80 H 92 Nasal Cannula 04/08/22 14:15 36.8 C 82 18 159/86 H 92 Nasal Cannula 04/08/22 12:00 85 04/08/22 12:12 36.8 C 82 19 172/82 H 95 Room Air 04/08/22 08:00 88 21 163/91 H 94 Room Air 04/08/22 04:45 81 17 97 Nasal Cannula 04/08/22 04:30 89 24 90 Nasal Cannula 04/08/22 04:15 80 17 97 Nasal Cannula 04/08/22 04:53 97 Nasal Cannula O2 Flow Rate 04/08/22 14:30 4 04/08/22 14:15 4 04/08/22 12:00 04/08/22 12:12 04/08/22 08:00 04/08/22 04:45 2 04/08/22 04:30 2 04/08/22 04:15 2 04/08/22 04:53 2
[2022-04-08] MEDS ORDERED: NITROGLYCERIN SL 0.4 MG/TAB TAB SL PRN (16:12)
--- NOTE | 2022-04-08 16:16 | Post Anesthesia Assessment ---
Date of Service April 08, 2022 Post Sedation Assessment Vital Signs Temp Pulse Pulse Resp BP BP Pulse Ox 04/09/22 11:12 36.6 C 83 18 104/68 94 04/09/22 09:00 84 04/09/22 07:55 36.8 C 82 18 145/71 H 96 04/09/22 04:28 36.9 C 84 16 144/68 H 94 04/09/22 01:24 88 04/08/22 22:30 36.8 C 87 16 123/68 92 04/08/22 19:15 36.7 C 86 16 124/66 96 04/08/22 16:41 36.9 C 79 19 157/79 H 95 04/08/22 16:31 36.9 C 80 20 125/75 94 04/08/22 14:30 36.8 C 82 21 170/80 H 92 04/08/22 14:15 36.8 C 82 18 159/86 H 92 04/08/22 12:00 85 04/08/22 12:12 36.8 C 82 19 172/82 H 95 O2 Del Method O2 Flow Rate 04/09/22 11:12 Room Air 04/09/22 09:00 04/09/22 07:55 Room Air 04/09/22 04:28 04/09/22 01:24 04/08/22 22:30 Room Air 04/08/22 19:15 Room Air 04/08/22 16:41 Room Air 04/08/22 16:31 Room Air 04/08/22 14:30 Nasal Cannula 4 04/08/22 14:15 Nasal Cannula 4 04/08/22 12:00 04/08/22 12:12 Room Air Recovery Score Activity: Moves 4 extremities Respiration: Deep Breath/Cough Circulation: +/-20% PreAnes Value Consciousness: Arouseable (by name) Oxygen Saturation: > 92% On Room Air Discharge Sedation Level of Care: Phase I Post Sedation Plan On clinical assessment, the patient appears to have tolerated the sedation without complications. Patient is recovering as anticipated. Patient will continue to be monitored by nursing and may be discharged when sedation discharge criteria are met per below protocol. Upon Completions of procedure up to 15 minutes continue every 5 minute vital signs and the P.A.R. score; then discharge to a Phase I or Fast Track to Phase II per the following guidelines: * Discharge Patient to appropriate Phase II area if PAR is 8 or greater or return to pre- procedure baseline. The post - procedure orders will be as directed. * If PAR score is less than 8 or not return to pre-procedure baseline then patient will follow Phase I monitoring till PAR is reached for Phase II. The Phase I may be done in procedure room or may call to secure a Phase I area. * If naloxone or flumazenil are used for reversal, hold in Phase I for continued monitoring from when last reversal dose was given for a minimum of 60 minutes or longer pending the nurse and/or physician discretion of patient condition before discharge to Phase II. Please call the Sedation Physician to re-evaluate and complete post-note for discharge to Phase II area. Do NOT discharge from procedure sedation or Phase 1 until post- sedation evalua tion note is complete by procedure /sedation MD Sedation Discharge Instructions to be given to the patient at discharge to home.
--- NOTE | 2022-04-08 16:34 | Cardiac Catheterization ---
Cardiac Cath Procedure Full Procedure Date April 08, 2022 Pre-Procedure Diagnosis Pre-Procedure Diagnosis: Acute Coronary Syndrome and CAD AUC Score AUC Score: 8 Post-Procedure Diagnosis Post-Procedure Diagnosis: Severe CAD and Normal Intracardiac Pressures Procedure(s) Performed Procedure(s) Performed: Coronary Angiography, Left Heart Cath, Bypass Graft Angiography and Femoral Artery Angiography Senior Partner Felipe Rodas DO [employer](s) Slick RTR Estimated Blood Loss Estimated Blood Loss: 5cc Medication(s) Medication(s): Fentanyl, Heparin, Lidocaine 1%, Nicardipine, Nitroglycerin and Versed Summary of Findings Severely calcified left main with severe ostial and proximal left main stenosis, 75%. Ventricularization of arterial waveforms with catheter engagement of the left main. 100% ostial RCA 99% ostial Lcx with GIOVANNY 1 flow Patent SVG to OM2 Patent FLAKITO to distal RCA Hemodynamics Rest Ao:: 168/70/122 Final Ao: 151/68/99 LV: 142/2/14 Recommendations Recommendations: Management Recommendatons (Transfer to tertiary care to consider coronary artery bypass grafting versus complex left main PCI) Radiation Exposure (mGy) 581 Contrast (mls) 110 Fluids (cc crystalloids) Fluids (cc crystalloids): 100 Nss Drains Drains: N/A Anesthesia Moderate sedation. Start 1523. End 1558. Sedation monitor Beto JORDAN Procedural Complication(s) None Disposition Rigging Man Holding/Recovery I attest to the content of the Intraoperative Record and any orders documented therein. Any exceptions are noted below. ACC Data: Rigging Man Cardiac Status Clinical evaluation leading to the procedure 76-year-old patient presented emergency department with crescendo angina both at rest and with mild exertion. Cardiac enzymes negative. No regional wall motion abnormality on echocardiogram. CAD Presenation: Unstable angina Coronary Anatomy Dominant: Right Left Main (% Stenosis): Ostial (70%, Ventricularization of arterial waveform during engagement), Proximal (70% severe calcification), Mid (60% severe calcification) and Distal (60% severe calcification) LAD (% Stenosis): Proximal (30%, moderate calcification) and Mid (Luminal irregularities, 10-20%) D1 (% Stenosis): Mid (Bifurcating vessel, luminal irregularities, 20%) Circumflex (% Stenosis): Ostial (99% with GIOVANNY I flow) OM1 (% Stenosis): Mid (Luminal irregularities, 20%, GIOVANNY I flow) OM2 (% Stenosis): Mid (Small vessel, luminal irregularities, 10%) L PL1 (% Stenosis): Proximal (30% fills via retrograde flow from saphenous vein graft) RCA (% Stenosis): Ostial (100%) R PDA (% Stenosis): Proximal (30%), Mid (Luminal irregularities, 10-20%) and Distal (1mm distally with upto 30% stenosis) R PL1 (% Stenosis): Mid (Luminal irregularities, 10%) R PL2 (% Stenosis): Mid (Small vessel, luminal irregularities, 10%) Ramus (% Stenosis): Ostial (40%, small vessel) Grafts - Circumflex (%): Normal Grafts - RCA (%): Normal (Patent FLAKITO with 20% ostial stenosis, likely catheterinduced spasm) Diagnostic Physicians Name: Felipe Rodas DO Closure Device Recommendations: Management Recommendatons (Transfer to tertiary care to consider coronary artery bypass grafting versus complex left main PCI) Intraprocedure Events Significant Disection: No Perforation: No
[2022-04-08] MEDS: LANTUS PER UNIT CHARGE SQ SCH (22:04)
[2022-04-08] MEDS: allopurinoL 100 MG TAB PO SCH (22:06)
[2022-04-09] MEDS: NITROGLYCERIN 2% OINTMENT 30GM TUBE EXT SCH ×4 (04:31→21:33)
[2022-04-09 07:30] LABS: Hematocrit (blood only) 40.1 % (40.1-51.0); Hemoglobin 13.7 g/dl (14.0-18.0); Mean Corpuscular Hemoglobin 31.1 pg (25.0-34.0); Mean Corpuscular Hgb Conc 34.2 g/dL (32.0-36.0); Mean Corpuscular Volume 90.9 fL (80.0-100.0); Mean Platelet Volume 8.9 fL (9.4-12.4); Platelet Count 116 K/uL (130-400); RDW Coefficient of Variation 13.2 % (11.5-14.5); RDW Standard Deviation 43.1 fL (36.4-46.3); Red Blood Count 4.41 M/uL (4.63-6.08); White Blood Count 6.92 K/ul (4.8-10.8)
[2022-04-09 07:56] LABS: BUN Creatinine Ratio 16.5 (10-20); Creatinine Clr Calc Pharmacy 66.8 ml/min; Est GFR (African American) 95.9 ml/min; Est GFR (Non-African American) 82.7 ml/min; Magnesium 1.9 mg/dl (1.7-2.4); Potassium 4.7 mmol/L (3.5-5.1)
[2022-04-09] MEDS: ENALAPRIL MALEATE 10 MG TAB PO SCH (08:49)
[2022-04-09] MEDS: PANTOprazole 40 MG TAB PO SCH (08:49)
[2022-04-09] MEDS: METOPROLOL TARTRATE 25 MG TAB PO SCH ×2 (08:50→20:43)
[2022-04-09] MEDS: INSULIN ASPART PER UNIT SC SCH ×4 (08:55→21:22)
[2022-04-09] MEDS: LANTUS PER UNIT CHARGE SQ SCH ×2 (10:00→21:23)
[2022-04-09] MEDS ORDERED: HEPARIN SODIUM/DEXTROSE 25,000 UNITS/500 ML BAG IV SCH (13:00)
[2022-04-09] MEDS ORDERED: Heparin IV Adult Wt-Based Low-Dose *NO* Bolus Protocol IV SCH (13:00)
--- NOTE | 2022-04-09 13:40 | Cardiology Progress Note ---
Date of Service April 09, 2022 Assessment & Plan (1) Unstable angina: (2) Left main coronary artery disease: (3) HTN (hypertension): Plan Cardiac catheterization reveals patent bypass grafts and severe left main stenosis. Continue topical nitrates, beta-mabel, high intensity statin therapy, and TAMANNA inhibitor. Add low-dose aspirin, 81 mg daily. Eliquis on hold since admission. Recommend initiation of intravenous heparin infusion. Transfer to tertiary care center for further evaluation and management of left main coronary disease. Patient agreeable and accepted to transfer to [facility]. Admission and Anticipated Discharge Date Admission Date: April 08, 2022 Subjective Patient seen examined the bedside. No recurrent chest discomfort overnight. Telemetry reveals sinus rhythm in the 80s. No dysrhythmias. present at bedside. Patient denies orthopnea, PND, or edema. No groin discomfort or hematoma. Anticoagulation on hold since procedure. Review of Systems Review of Systems: All systems reviewed & are unremarkable except as noted in Subjective Physical Exam Constitutional: well nourished; no acute distress ENMT: Mallampati Class: II Respiratory: Auscultation: lungs clear to auscultation bilaterally Cardiovascular: Rate/Rhythm: regular rate and regular rhythm Heart Sounds: normal S1 and normal S2 Vessels: femoral pulses present (No hematoma or ecchymosis) and radial pulses present; no JVD and no carotid bruit Extremities: no edema Gastrointestinal (Abdomen): Inspection/Auscultation: normal bowel sounds; abdomen not distended Percussion/Palpation: abdomen soft; abdomen nontender, no guarding and abdomen not rigid Neurologic: CN's II-XI intact bilaterally and moves all extremities; no focal motor deficits Motor/Sensory: no tremor Psychiatric: A+Ox3, euthymic affect Results & Data ([facility]) Vital Signs (Past 12 Hours) Vital Signs Temp Pulse Pulse Resp BP Pulse Ox O2 Del Method 04/09/22 11:12 36.6 C 83 18 104/68 94 Room Air 04/09/22 09:00 84 04/09/22 07:55 36.8 C 82 18 145/71 H 96 Room Air 04/09/22 04:28 36.9 C 84 16 144/68 H 94
--- NOTE | 2022-04-09 14:39 | Hospitalist Progress Note ---
Date of Service April 09, 2022 Assessment & Plan (1) Chest pain: Plan 76-year-old male with PMH of CAD status post stent/CABG [2009], PAF on Eliquis, HTN, HLD, DM 2 insulin requiring, gout, skin cancer status post surgery, episodic thrombocytopenia, past tobacco abuse presented to our ED 04/07 with complaint of intermittent chest pain episodes going down the left arm worsening since last few days but present since last 1 and half weeks. He relates it to the angina attacks in the past. Chest discomfort was relieved by nitroglycerin. He is being managed for the following: Chest pain rule out ACS Likely unstable angina History of CAD status post CABG/stent Patient presents with chest pain [see above]. Admitting troponin x3 were negative. Admitting EKG with T wave abnormality in lateral leads. Follow-up EKG next a.m. with similar T wave abnormality. Continue with PCU telemetry monitoring. Pt w/ no further chest pain. 04/08 echo with EF 60 to 65% with grade 1 diastolic dysfunction. Discussed with cardiology, for CABG at tertiary center, will resume heparin drip for now. Appreciate cardiology recommendations. H/O PAF: NSR on EKG, patient on Eliquis at home, currently on heparin drip. HTN: Blood pressure on the high side, patient on enalapril, home metoprolol, Nitropaste every 6 hours. Other chronic medical conditions: HLD, DM2 insulin requiring, gout, episodic thrombocytopenia, past tobacco abuse ---->> continue with home meds as able. Disposition: With cardiology clearance, likely to home. DVT prophylaxis: On heparin drip. Full code Dispo: accepted for transfer at [facility], pending bed availability. Admission and Anticipated Discharge Date Admission Date: April 08, 2022 Subjective Patient seen and examined at bedside as a follow-up for chest pain rule out ACS. Patient was lying in bed, on room air, NAD, reports no further chest pain, denies headache/dizziness/palpitations/belly pain/acute changes in bowel or bladder habits/other review of symptoms. Reports eating OK. Patient reports moving bowels okay. Patient denies any acid brash or retrosternal burning sensation. Will resume heparin drip, pt is on eliquis at home. Physical Exam Physical Exam: GENERAL: Alert and oriented x3. NAD, on RA. HEENT: No pallor, no icterus. Pupils equal, round and reactive to light. Oral mucosa moist. NECK: No JVD, no neck masses. HEART: S1 and S2 heard. Regular rate and rhythm. Systolic Murmur at aortic area > pulmonic area, no gallop. RESPIRATORY SYSTEM: Normal AP diameter. No accessory muscle use. No wheezing, no crackles. ABDOMEN: Soft, bowel sounds present, nontender, no distention. CENTRAL NERVOUS SYSTEM: No facial droop. Speech is clear. Obeys simple commands. Moves extremities. EXTREMITIES: No edema, no erythema seen. Results & Data Results & Data ([facility]) Vital Signs (Past 12 Hours) Vital Signs Temp Pulse Pulse Resp BP Pulse Ox O2 Del Method 04/09/22 11:12 36.6 C 83 18 104/68 94 Room Air 04/09/22 09:00 84 04/09/22 07:55 36.8 C 82 18 145/71 H 96 Room Air 04/09/22 04:28 36.9 C 84 16 144/68 H 94
--- NOTE | 2022-04-09 14:54 | Electrocardiogram Report ---
Test Reason : Blood Pressure : / mmHG Vent. Rate : 079 BPM Atrial Rate : 079 BPM P-R Int : 182 ms QRS Dur : 074 ms QT Int : 370 ms P-R-T Axes : -33 -21 147 degrees QTc Int : 424 ms Unusual P axis, possible ectopic atrial rhythm Inferior infarct , age undetermined Abnormal ECG When compared with ECG of 08-APR-2022 12:12, Ectopic atrial rhythm has replaced Sinus rhythm Inferior infarct is now Present Confirmed by Saul Pirce ([id number]) on 04/09/2022 2:54:36 PM Referred By: REFERRED SELF Confirmed By:Saul Price
[2022-04-09 20:20] LABS: Partial Thromboplastin Ratio 1.3; Partial Thromboplastin Time 34.6 Seconds (21.0-31.0)
[2022-04-09] MEDS: ATORVASTATIN 40 MG TAB PO SCH (20:43)
[2022-04-09] MEDS: allopurinoL 100 MG TAB PO SCH (20:43)
[2022-04-09] MEDS ORDERED: HEPARIN SOD (PORCINE) 1000 UNIT/ML IV ONE (21:00)
[2022-04-09] MEDS ORDERED: HEPARIN IV BOLUS 3,000 UNITS in SYRINGE 0 ML IV ONE (21:00)
--- NOTE | 2022-04-09 22:42 | Discharge Summary ---
Date of Service April 09, 2022 Admission HPI Per Admitting Provider History obtained from patient and records. Medical history significant for CAD status post stent/CABG (2008), PAF on Eliquis, hypertension, hyperlipidemia, DM2 insulin requiring, gout, skin cancer status post surgery, episodic thrombocytopenia, past tobacco abuse. Patient is a resident of [place], [place] who arrived in town the last few days for the [employer] next week. Intermittent left-sided chest pain episodes going down the left arm the last 2 days. No shortness of breath, no cough. Episode reminiscent of anginal attacks in the past. Transient chest discomfort going to the back last week. Patient compliant with home meds. Blood pressure and heart rate noted to be elevated at home today. SBP 180s, heart rate 110s which is unusual for him as per patient. Chest discomfort relieved by nitroglycerin intake. No concerns on last follow-up with template worker from [facility] 6 months ago. No recent stress test. Last cardiac catheterization 2016. Medical Historyas above Surgical History : CABG, shoulder surgery, back surgery, elbow surgery, ankle surgery, splenic artery clipping, melanoma surgery/construction Family History : Heart disease Personal/Social history : Past tobacco abuse, occasional EtOH intake, retired [employer] employee Discharge Data Consultations 04/07/22 23:31 Consult Cardiology Routine 04/08/22 10:07 HIM [Consult Health Information Management] Routine 04/09/22 19:28 Burn CD for patient Stat Procedures Performed Operation Date: 04/08/22 14:00 Actual Procedures p Cath, Left w/Cors Vent Grafts - DO elizabeth Lares Cineradiography w/Routine Exam - DO elizabeth Lares Placement Art Occlusive Device - Alonso Humphries MD Hospital Course (1) Unstable angina: Chest pain: Plan 76-year-old male with PMH of CAD status post stent/CABG [2008], PAF on Eliquis, HTN, HLD, DM 2 insulin requiring, gout, skin cancer status post surgery, episo dic thrombocytopenia, past tobacco abuse presented to our ED 04/07 with complaint of intermittent chest pain episodes going down the left arm worsening since last few days but present since last 1 and half weeks. He relates it to the angina attacks in the past. Chest discomfort was relieved by nitroglycerin. He is being managed for the following: Chest pain rule out ACS Likely unstable angina History of CAD status post CABG/stent Patient presents with chest pain [see above]. Admitting troponin x3 were negative. Admitting EKG with T wave abnormality in lateral leads. Follow-up EKG next a.m. with similar T wave abnormality. Continue with PCU telemetry monitoring. Pt w/ no further chest pain. 04/08 echo with EF 60 to 65% with grade 1 diastolic dysfunction. Diagnostic cardiac catheterization showed : Severely calcified left main with severe ostial and proximal left main stenosis, 75%. Ventricularization of arterial waveforms with catheter engagement of the l eft main. 100% ostial RCA 99% ostial Lcx with GIOVANNY 1 flow Patent SVG to OM2 Patent FLAKITO to distal RCA Cardiology recommended transfer to tertiary care to consider coronary artery bypass grafting versus complex left main PCI) Dispo: accepted for transfer at [facility] by Dr. Geiger pending bed availability. H/O PAF: NSR on EKG, patient on Eliquis at home, currently on heparin drip. HTN: Blood pressure on the high side, patient on enalapril, home metoprolol, Nitropaste every 6 hours. Other chronic medical conditions:HLD, DM2 insulin requiring, gout, episodic thrombocytopenia, past tobacco abuse ---->> continue with home meds as able. DVT prophylaxis: On heparin drip. Full code (Preceding documentation partially from morning provider.) Total time to prepare this discharge summary was less than 10 minutes.
== END 2022-04-09 22:51 | disposition short-term general hospital (02) | DRG 287 ==
LOC: ED 19:55 → EDINP 19:55 → 4W 23:21
DX: E11.9 Type 2 diabetes mellitus without complications; Z95.5 Presence of coronary angioplasty implant and graft; I10 Essential (primary) hypertension; Z79.01 Long term (current) use of anticoagulants; I48.0 Paroxysmal atrial fibrillation; M10.9 Gout, unspecified; Z95.1 Presence of aortocoronary bypass graft; Z79.84 Long term (current) use of oral hypoglycemic drugs; Z87.891 Personal history of nicotine dependence; I25.110 Atherosclerotic heart disease of native coronary artery with unstable angina pectoris; E78.5 Hyperlipidemia, unspecified; Z79.4 Long term (current) use of insulin